=== PATIENT | male | born 1955 | race African-American/Black ===

== ENCOUNTER 2025-07-18 08:23 | Inpatient (IN) | payer OTHER ==
[2025-07-18] MEDS ORDERED: Iopamidol-370 76% 500 ML MDV (1 ML CHARGE) ONE (08:45)
[2025-07-18 08:47] LABS: #Basophils 0.03 10x3/uL (0.0-0.2); #Eosinophils 0.20 10x3/uL (0.0-0.7); #Monocytes 0.43 10x3/uL (0.11-0.59); #Neutrophils 2.78 10x3/uL (1.40-6.50); %Basophils 0.6 % (0.0-1.0); %Eosinophils 3.8 % (0.0-10.0); %Lymphocytes 35.3 % (21.0-51.0); %Monocytes 8.1 % (0.0-10.0); %Neutrophils 52.0 % (42.0-75.0); Hematocrit 37.2 % (42.0-52.0); Hemoglobin 11.8 g/dL (14.0-18.0); Mean Corpuscular Hemoglobin 31.5 pg (27.0-31.0); Mean Corpuscular Volume 99.2 fL (78.0-98.0); Platelet Count 256 10x3/uL (130-400); Red Blood Cell (RBC) Count 3.75 mill/uL (4.70-6.10); White Blood Cell (WBC) Count 5.33 10x3/uL (4.8-10.8)
[2025-07-18 09:00] LABS: ALT (SGPT) 16 U/L (Less than 45); AST (SGOT) 19 U/L (11-34); Albumin 3.6 g/dL (3.1-4.5); Alkaline Phosphatase 117 U/L (40-110); Anion Gap 14 mmol/L (10-20); BUN (Urea Nitrogen) 8 mg/dL (8.4-25.7); Bilirubin, Total 0.9 mg/dL (0.3-1.2); Calc. Creatinine Clearance 0 mL/min (70-130); Calcium 9.3 mg/dL (7.8-10.44); Carbon Dioxide 24 mmol/L (23-31); Chloride 109 mmol/L (98-107); Globulin 3.2 g/dL (2.4-3.5); Glucose 93 mg/dL (80-115); Potassium 4.0 mmol/L (3.5-5.1); Sodium 143 mmol/L (136-145)
[2025-07-18 09:07] LABS: INR-International Normal Ratio 1.2; PTT 28.2 sec (22.9-36.1); Prothrombin Time 15.1 sec (12.0-14.7)
[2025-07-18] MEDS ORDERED: Aspirin 325 MG TAB ONE (10:13)
[2025-07-18] MEDS ORDERED: Acetaminophen 325 MG TAB PO PRN (11:07)
[2025-07-18] MEDS ORDERED: hydrALAZINE 20 MG/ML VIAL SLOW IVP PRN (11:07)
[2025-07-18] MEDS ORDERED: Ondansetron PF 4 MG/2 ML Vial IVP PRN (11:07)
[2025-07-18 13:14] VITALS: BMI 18.8
[2025-07-18] MEDS: FLU (Fluad Triv) 25-26 (65UP)PF 45 MCG/0.5 ML Syringe IM ONE (16:08)
[2025-07-18] MEDS: PNEUMOC 20-VAL CONJ-DIP CRM/PF 0.5 ML SYRINGE IM ONE (16:09)
[2025-07-18] MEDS: Carvedilol 6.25 MG TAB PO SCH (16:10)
[2025-07-18] MEDS: Famotidine 20 MG TAB PO SCH (20:37)
[2025-07-19 04:03] LABS: #Basophils 0.04 10x3/uL (0.0-0.2); #Eosinophils 0.18 10x3/uL (0.0-0.7); #Monocytes 0.52 10x3/uL (0.11-0.59); #Neutrophils 3.72 10x3/uL (1.40-6.50); %Basophils 0.6 % (0.0-1.0); %Eosinophils 2.8 % (0.0-10.0); %Lymphocytes 30.0 % (21.0-51.0); %Monocytes 8.1 % (0.0-10.0); %Neutrophils 57.7 % (42.0-75.0); Hematocrit 34.5 % (42.0-52.0); Hemoglobin 11.1 g/dL (14.0-18.0); Mean Corpuscular Hemoglobin 31.4 pg (27.0-31.0); Mean Corpuscular Volume 97.7 fL (78.0-98.0); Platelet Count 257 10x3/uL (130-400); Red Blood Cell (RBC) Count 3.53 mill/uL (4.70-6.10); White Blood Cell (WBC) Count 6.44 10x3/uL (4.8-10.8)
[2025-07-19 04:20] LABS: Anion Gap 12 mmol/L (10-20); BUN (Urea Nitrogen) 10 mg/dL (8.4-25.7); Calc. Creatinine Clearance 81 mL/min (70-130); Calcium 9.3 mg/dL (7.8-10.44); Carbon Dioxide 24 mmol/L (23-31); Cardiac Risk 2.3 (Less than 4.5); Chloride 106 mmol/L (98-107); Cholesterol 104 mg/dl (< 200 Desired); Glucose 89 mg/dL (80-115); HDL Cholesterol 45 mg/dL (>60 Neg Risk); LDL Cholesterol, Calculated 51 mg/dL; Potassium 4.0 mmol/L (3.5-5.1); Sodium 138 mmol/L (136-145); Triglycerides 42 mg/dL (Less than 150)
[2025-07-19] MEDS: Losartan 25 MG TAB PO SCH (10:15)
[2025-07-19] MEDS: NIFEdipine XL 60 MG ER.TAB PO SCH (10:15)
[2025-07-19] MEDS: Aspirin 81 mg Enteric Coated Tablet PO SCH (10:15)
[2025-07-20 04:10] LABS: #Basophils 0.03 10x3/uL (0.0-0.2); #Eosinophils 0.24 10x3/uL (0.0-0.7); #Monocytes 0.52 10x3/uL (0.11-0.59); #Neutrophils 2.46 10x3/uL (1.40-6.50); %Basophils 0.6 % (0.0-1.0); %Eosinophils 4.8 % (0.0-10.0); %Lymphocytes 33.9 % (21.0-51.0); %Monocytes 10.5 % (0.0-10.0); %Neutrophils 49.8 % (42.0-75.0); Hematocrit 37.0 % (42.0-52.0); Hemoglobin 11.6 g/dL (14.0-18.0); Mean Corpuscular Hemoglobin 30.9 pg (27.0-31.0); Mean Corpuscular Volume 98.7 fL (78.0-98.0); Platelet Count 268 10x3/uL (130-400); Red Blood Cell (RBC) Count 3.75 mill/uL (4.70-6.10); White Blood Cell (WBC) Count 4.95 10x3/uL (4.8-10.8)
[2025-07-20 04:19] LABS: Anion Gap 9 mmol/L (10-20); BUN (Urea Nitrogen) 12 mg/dL (8.4-25.7); Calc. Creatinine Clearance 74 mL/min (70-130); Calcium 9.2 mg/dL (7.8-10.44); Carbon Dioxide 28 mmol/L (23-31); Chloride 105 mmol/L (98-107); Glucose 94 mg/dL (80-115); Potassium 3.6 mmol/L (3.5-5.1); Sodium 138 mmol/L (136-145)
[2025-07-20 15:55] VITALS: BMI 18.8
[2025-07-21 04:32] LABS: #Basophils 0.04 10x3/uL (0.0-0.2); #Eosinophils 0.25 10x3/uL (0.0-0.7); #Monocytes 0.53 10x3/uL (0.11-0.59); #Neutrophils 2.52 10x3/uL (1.40-6.50); %Basophils 0.8 % (0.0-1.0); %Eosinophils 4.8 % (0.0-10.0); %Lymphocytes 35.2 % (21.0-51.0); %Monocytes 10.3 % (0.0-10.0); %Neutrophils 48.7 % (42.0-75.0); Hematocrit 36.9 % (42.0-52.0); Hemoglobin 11.8 g/dL (14.0-18.0); Mean Corpuscular Hemoglobin 31.1 pg (27.0-31.0); Mean Corpuscular Volume 97.4 fL (78.0-98.0); Platelet Count 262 10x3/uL (130-400); Red Blood Cell (RBC) Count 3.79 mill/uL (4.70-6.10); White Blood Cell (WBC) Count 5.17 10x3/uL (4.8-10.8)
[2025-07-21 04:45] LABS: Anion Gap 10 mmol/L (10-20); BUN (Urea Nitrogen) 12 mg/dL (8.4-25.7); Calc. Creatinine Clearance 85 mL/min (70-130); Calcium 9.2 mg/dL (7.8-10.44); Carbon Dioxide 27 mmol/L (23-31); Chloride 109 mmol/L (98-107); Glucose 85 mg/dL (80-115); Magnesium 2.0 mg/dL (1.6-2.6); Potassium 4.2 mmol/L (3.5-5.1); Sodium 142 mmol/L (136-145)
[2025-07-22 06:53] LABS: #Basophils 0.04 10x3/uL (0.0-0.2); #Eosinophils 0.29 10x3/uL (0.0-0.7); #Monocytes 0.57 10x3/uL (0.11-0.59); #Neutrophils 2.87 10x3/uL (1.40-6.50); %Basophils 0.7 % (0.0-1.0); %Eosinophils 5.1 % (0.0-10.0); %Lymphocytes 33.9 % (21.0-51.0); %Monocytes 10.0 % (0.0-10.0); %Neutrophils 50.1 % (42.0-75.0); Hematocrit 38.1 % (42.0-52.0); Hemoglobin 12.4 g/dL (14.0-18.0); Mean Corpuscular Hemoglobin 31.5 pg (27.0-31.0); Mean Corpuscular Volume 96.7 fL (78.0-98.0); Platelet Count 283 10x3/uL (130-400); Red Blood Cell (RBC) Count 3.94 mill/uL (4.70-6.10); White Blood Cell (WBC) Count 5.72 10x3/uL (4.8-10.8)
[2025-07-22 07:26] LABS: Anion Gap 10 mmol/L (10-20); BUN (Urea Nitrogen) 12 mg/dL (8.4-25.7); Calc. Creatinine Clearance 100 mL/min (70-130); Calcium 9.3 mg/dL (7.8-10.44); Carbon Dioxide 27 mmol/L (23-31); Chloride 108 mmol/L (98-107); Glucose 80 mg/dL (80-115); Potassium 3.9 mmol/L (3.5-5.1); Sodium 141 mmol/L (136-145)
[2025-07-22 16:52] VITALS: BP 130/76; TEMP 97.9
== END 2025-07-22 17:52 | DRG 69 ==
LOC: ERS 08:23 → PCU 11:47
PROVIDERS: ADMIT Family Medicine; ATTEND Internal Medicine
PROC: 3E0234Z Introduction of Serum, Toxoid and Vaccine into Muscle, Percutaneous Approach (ICD-10-PCS; 2025-07-18)
PROC: 4A00X4Z Measurement of Central Nervous Electrical Activity, External Approach (ICD-10-PCS; principal; 2025-07-19)
DX: G45.9 Transient cerebral ischemic attack, unspecified (principal); G81.91 Hemiplegia, unspecified affecting right dominant side; R47.01 Aphasia; R29.810 Facial weakness; R29.711 NIHSS score 11; I25.10 Atherosclerotic heart disease of native coronary artery without angina pectoris; I10 Essential (primary) hypertension; Z79.899 Other long term (current) drug therapy; Z23 Encounter for immunization; Z88.8 Allergy status to other drugs, medicaments and biological substances; Z82.49 Family history of ischemic heart disease and other diseases of the circulatory system
CPT/HCPCS: 36415; 36416; 70450; 70496; 70498; 70551; 80048; 80053; 80061; 83735; 84484; 85025; 85610; 85730; 90471; 90653; 90677; 93005; 95700; 95711; 95957; G0009; Q9967

== ENCOUNTER 2025-08-13 09:09 | Inpatient (IN) | payer OTHER ==
[2025-08-13 09:39] LABS: #Basophils 0.03 10x3/uL (0.0-0.2); #Eosinophils 0.25 10x3/uL (0.0-0.7); #Monocytes 0.47 10x3/uL (0.11-0.59); #Neutrophils 3.47 10x3/uL (1.40-6.50); %Basophils 0.5 % (0.0-1.0); %Eosinophils 4.1 % (0.0-10.0); %Lymphocytes 30.9 % (21.0-51.0); %Monocytes 7.7 % (0.0-10.0); %Neutrophils 56.5 % (42.0-75.0); Hematocrit 41.6 % (42.0-52.0); Hemoglobin 12.9 g/dL (14.0-18.0); Mean Corpuscular Hemoglobin 31.1 pg (27.0-31.0); Mean Corpuscular Volume 100.2 fL (78.0-98.0); Platelet Count 302 10x3/uL (130-400); Red Blood Cell (RBC) Count 4.15 mill/uL (4.70-6.10); White Blood Cell (WBC) Count 6.14 10x3/uL (4.8-10.8)
[2025-08-13 09:51] LABS: ALT (SGPT) 20 U/L (Less than 45); AST (SGOT) 21 U/L (11-34); Albumin 4.1 g/dL (3.1-4.5); Alkaline Phosphatase 114 U/L (40-110); Anion Gap 17 mmol/L (10-20); BUN (Urea Nitrogen) 11 mg/dL (8.4-25.7); Bilirubin, Total 0.9 mg/dL (0.3-1.2); Calc. Creatinine Clearance 0 mL/min (70-130); Calcium 10.2 mg/dL (7.8-10.44); Carbon Dioxide 27 mmol/L (23-31); Chloride 105 mmol/L (98-107); Globulin 3.8 g/dL (2.4-3.5); Glucose 104 mg/dL (83-110); Potassium 4.5 mmol/L (3.5-5.1); Sodium 144 mmol/L (136-145)
[2025-08-13 11:37] LABS: Bacteria/HPF None Seen HPF (None Seen); CAUTI Indications for Culture Acute Hematuria; Glucose, Urine (Dipstick) Normal (Negative); Leukocyte Negative Leu/uL (Negative); Protein, Urine (Dipstick) 10 mg/dL (Neg-Trace); RBC/HPF 0-3 HPF (0-3); Specific Gravity, Urine 1.038 (1.002-1.036); WBC/HPF 0-3 HPF (0-3)
[2025-08-13 11:40] LABS: Urine Culture Reflex No No
[2025-08-13] MEDS ORDERED: Senokot S 8.6-50 MG TAB PO PRN (12:34)
[2025-08-13] MEDS ORDERED: Ondansetron PF 4 MG/2 ML Vial IVP PRN (12:34)
[2025-08-13] MEDS ORDERED: hydrALAZINE 20 MG/ML VIAL SLOW IVP PRN (12:34)
[2025-08-13 12:52] VITALS: BMI 21.7
[2025-08-13] MEDS ORDERED: Iopamidol-370 76% 500 ML MDV (1 ML CHARGE) ONE (13:43)
[2025-08-13] MEDS: Aspirin 81 mg Enteric Coated Tablet PO SCH (16:31)
[2025-08-13] MEDS: Famotidine 20 MG TAB PO SCH (19:59)
[2025-08-14 05:46] LABS: Anion Gap 12 mmol/L (10-20); BUN (Urea Nitrogen) 12 mg/dL (8.4-25.7); Calc. Creatinine Clearance 99 mL/min (70-130); Calcium 9.9 mg/dL (7.8-10.44); Carbon Dioxide 24 mmol/L (23-31); Cardiac Risk 2.5 (Less than 4.5); Chloride 106 mmol/L (98-107); Cholesterol 130 mg/dl (< 200 Desired); Glucose 88 mg/dL (83-110); HDL Cholesterol 51 mg/dL (>60 Neg Risk); LDL Cholesterol, Calculated 66 mg/dL; Potassium 4.3 mmol/L (3.5-5.1); Sodium 138 mmol/L (136-145); Triglycerides 64 mg/dL (Less than 150)
[2025-08-14] MEDS: Aspirin 81 mg Enteric Coated Tablet PO SCH (09:45)
[2025-08-15] MEDS: PNEUMOC 20-VAL CONJ-DIP CRM/PF 0.5 ML SYRINGE IM ONE (08:43)
[2025-08-15 14:38] VITALS: BMI 21.7
[2025-08-15] MEDS: FLU (Fluad Triv) 25-26 (65UP)PF 45 MCG/0.5 ML Syringe IM ONE (15:18)
[2025-08-16 15:59] VITALS: BP 116/68; TEMP 98.1
== END 2025-08-16 18:41 | DRG 69 ==
LOC: ERS 09:09 → ERHOLD 11:56 → 2SE 15:33
PROVIDERS: ADMIT Internal Medicine; ATTEND Internal Medicine
PROC: XX20X89 Monitoring of Brain Electrical Activity, Computer-aided Detection and Notification, New Technology Group 9 (ICD-10-PCS; principal; 2025-08-13)
PROC: 3E02340 Introduction of Influenza Vaccine into Muscle, Percutaneous Approach (ICD-10-PCS; 2025-08-15)
DX: G45.9 Transient cerebral ischemic attack, unspecified (principal); I69.951 Hemiplegia and hemiparesis following unspecified cerebrovascular disease affecting right dominant side; I10 Essential (primary) hypertension; E78.5 Hyperlipidemia, unspecified; I25.10 Atherosclerotic heart disease of native coronary artery without angina pectoris; Z66 Do not resuscitate; Z88.8 Allergy status to other drugs, medicaments and biological substances; Z23 Encounter for immunization
CPT/HCPCS: 36415; 70450; 70496; 70498; 80048; 80053; 80061; 81001; 83605; 84146; 85025; 93005; Q9967

== ENCOUNTER 2025-09-20 11:37 | Inpatient (IN) | payer OTHER ==
[~2025-09-20 11:37] MED LIST: Iopamidol-370 76% 500 ML MDV (1 ML CHARGE) ONE
[2025-09-20 12:13] LABS: #Basophils 0.04 10x3/uL (0.0-0.2); #Eosinophils 0.08 10x3/uL (0.0-0.7); #Monocytes 0.44 10x3/uL (0.11-0.59); #Neutrophils 4.20 10x3/uL (1.40-6.50); %Basophils 0.6 % (0.0-1.0); %Eosinophils 1.3 % (0.0-10.0); %Lymphocytes 24.7 % (21.0-51.0); %Monocytes 6.9 % (0.0-10.0); %Neutrophils 66.2 % (42.0-75.0); Hematocrit 36.3 % (42.0-52.0); Hemoglobin 11.5 g/dL (14.0-18.0); Mean Corpuscular Hemoglobin 31.2 pg (27.0-31.0); Mean Corpuscular Volume 98.4 fL (78.0-98.0); Platelet Count 284 10x3/uL (130-400); Red Blood Cell (RBC) Count 3.69 mill/uL (4.70-6.10); White Blood Cell (WBC) Count 6.35 10x3/uL (4.8-10.8)
[2025-09-20 12:27] LABS: INR-International Normal Ratio 1.1; PTT 24.6 sec (22.9-36.1); Prothrombin Time 14.4 sec (12.0-14.7)
[2025-09-20 13:12] LABS: ALT (SGPT) 11 U/L (Less than 45); AST (SGOT) 31 U/L (11-34); Albumin 3.4 g/dL (3.1-4.5); Alkaline Phosphatase 80 U/L (40-110); Anion Gap 11 mmol/L (10-20); BUN (Urea Nitrogen) 12 mg/dL (8.4-25.7); Bilirubin, Total 0.6 mg/dL (0.3-1.2); Calc. Creatinine Clearance 0 mL/min (70-130); Calcium 8.8 mg/dL (7.8-10.44); Carbon Dioxide 23 mmol/L (23-31); Chloride 112 mmol/L (98-107); Globulin 3.4 g/dL (2.4-3.5); Glucose 109 mg/dL (83-110); Potassium 4.2 mmol/L (3.5-5.1); Sodium 143 mmol/L (136-145)
[2025-09-20 14:53] LABS: Bacteria/HPF None Seen HPF (None Seen); CAUTI Indications for Culture Fever or rigors; Glucose, Urine (Dipstick) Normal (Negative); Leukocyte Negative Leu/uL (Negative); Protein, Urine (Dipstick) 10 mg/dL (Neg-Trace); RBC/HPF 0-3 HPF (0-3); WBC/HPF None Seen HPF (0-3)
[2025-09-20 14:54] LABS: Specific Gravity, Urine Greater than 1.050 (1.002-1.036)
[2025-09-20 14:55] LABS: Urine Culture Reflex No No
[2025-09-20] MEDS ORDERED: Ondansetron PF 4 MG/2 ML Vial IVP PRN (16:36)
[2025-09-20] MEDS ORDERED: Melatonin 3 MG TAB PO PRN (16:36)
[2025-09-20] MEDS ORDERED: Calcium Carbonate 500 MG ChewTAB PO PRN (16:36)
[2025-09-20] MEDS ORDERED: Senokot S 8.6-50 MG TAB PO PRN (16:36)
[2025-09-20] MEDS ORDERED: hydrALAZINE 20 MG/ML VIAL SLOW IVP PRN (16:36)
[2025-09-20] MEDS: Famotidine 20 MG TAB PO SCH (20:46)
[2025-09-21 03:52] LABS: #Basophils 0.03 10x3/uL (0.0-0.2); #Eosinophils 0.26 10x3/uL (0.0-0.7); #Monocytes 0.49 10x3/uL (0.11-0.59); #Neutrophils 3.28 10x3/uL (1.40-6.50); %Basophils 0.5 % (0.0-1.0); %Eosinophils 4.3 % (0.0-10.0); %Lymphocytes 32.5 % (21.0-51.0); %Monocytes 8.1 % (0.0-10.0); %Neutrophils 54.3 % (42.0-75.0); Hematocrit 34.3 % (42.0-52.0); Hemoglobin 11.2 g/dL (14.0-18.0); Mean Corpuscular Hemoglobin 31.4 pg (27.0-31.0); Mean Corpuscular Volume 96.1 fL (78.0-98.0); Platelet Count 282 10x3/uL (130-400); Red Blood Cell (RBC) Count 3.57 mill/uL (4.70-6.10); White Blood Cell (WBC) Count 6.04 10x3/uL (4.8-10.8)
[2025-09-21 04:10] LABS: Anion Gap 11 mmol/L (10-20); BUN (Urea Nitrogen) 10 mg/dL (8.4-25.7); Calc. Creatinine Clearance 96 mL/min (70-130); Calcium 9.3 mg/dL (7.8-10.44); Carbon Dioxide 26 mmol/L (23-31); Chloride 111 mmol/L (98-107); Glucose 87 mg/dL (83-110); Potassium 4.1 mmol/L (3.5-5.1); Sodium 144 mmol/L (136-145)
[2025-09-21] MEDS: Aspirin 81 mg Enteric Coated Tablet PO SCH (08:56)
[2025-09-21] MEDS: levETIRAcetam 500 MG (5 mL) VIAL SLOW IVP SCH (11:07)
[2025-09-22 04:45] LABS: #Basophils 0.05 10x3/uL (0.0-0.2); #Eosinophils 0.23 10x3/uL (0.0-0.7); #Monocytes 0.33 10x3/uL (0.11-0.59); #Neutrophils 2.58 10x3/uL (1.40-6.50); %Basophils 1.1 % (0.0-1.0); %Eosinophils 5.0 % (0.0-10.0); %Lymphocytes 30.3 % (21.0-51.0); %Monocytes 7.2 % (0.0-10.0); %Neutrophils 56.2 % (42.0-75.0); Hematocrit 34.8 % (42.0-52.0); Hemoglobin 11.7 g/dL (14.0-18.0); Mean Corpuscular Hemoglobin 32.1 pg (27.0-31.0); Mean Corpuscular Volume 95.6 fL (78.0-98.0); Platelet Count 289 10x3/uL (130-400); Red Blood Cell (RBC) Count 3.64 mill/uL (4.70-6.10); White Blood Cell (WBC) Count 4.59 10x3/uL (4.8-10.8)
[2025-09-22 05:09] LABS: Anion Gap 12 mmol/L (10-20); BUN (Urea Nitrogen) 12 mg/dL (8.4-25.7); Calc. Creatinine Clearance 99 mL/min (70-130); Calcium 9.2 mg/dL (7.8-10.44); Carbon Dioxide 25 mmol/L (23-31); Chloride 108 mmol/L (98-107); Glucose 89 mg/dL (83-110); Potassium 4.2 mmol/L (3.5-5.1); Sodium 141 mmol/L (136-145)
[2025-09-23 05:37] LABS: #Basophils 0.04 10x3/uL (0.0-0.2); #Eosinophils 0.28 10x3/uL (0.0-0.7); #Monocytes 0.42 10x3/uL (0.11-0.59); #Neutrophils 2.54 10x3/uL (1.40-6.50); %Basophils 0.8 % (0.0-1.0); %Eosinophils 5.9 % (0.0-10.0); %Lymphocytes 31.0 % (21.0-51.0); %Monocytes 8.8 % (0.0-10.0); %Neutrophils 53.3 % (42.0-75.0); Hematocrit 36.5 % (42.0-52.0); Hemoglobin 11.7 g/dL (14.0-18.0); Mean Corpuscular Hemoglobin 31.4 pg (27.0-31.0); Mean Corpuscular Volume 97.9 fL (78.0-98.0); Platelet Count 280 10x3/uL (130-400); Red Blood Cell (RBC) Count 3.73 mill/uL (4.70-6.10); White Blood Cell (WBC) Count 4.77 10x3/uL (4.8-10.8)
[2025-09-23 05:49] LABS: Anion Gap 11 mmol/L (10-20); BUN (Urea Nitrogen) 11 mg/dL (8.4-25.7); Calc. Creatinine Clearance 85 mL/min (70-130); Calcium 9.3 mg/dL (7.8-10.44); Carbon Dioxide 26 mmol/L (23-31); Glucose 91 mg/dL (83-110); Potassium 4.8 mmol/L (3.5-5.1); Sodium 140 mmol/L (136-145)
[2025-09-23 05:51] LABS: Chloride 108 mmol/L (98-107)
[2025-09-24 04:34] LABS: #Basophils 0.03 10x3/uL (0.0-0.2); #Eosinophils 0.29 10x3/uL (0.0-0.7); #Monocytes 0.45 10x3/uL (0.11-0.59); #Neutrophils 3.03 10x3/uL (1.40-6.50); %Basophils 0.6 % (0.0-1.0); %Eosinophils 5.6 % (0.0-10.0); %Lymphocytes 26.1 % (21.0-51.0); %Monocytes 8.7 % (0.0-10.0); %Neutrophils 58.6 % (42.0-75.0); Hematocrit 37.6 % (42.0-52.0); Hemoglobin 12.3 g/dL (14.0-18.0); Mean Corpuscular Hemoglobin 31.4 pg (27.0-31.0); Mean Corpuscular Volume 95.9 fL (78.0-98.0); Platelet Count 292 10x3/uL (130-400); Red Blood Cell (RBC) Count 3.92 mill/uL (4.70-6.10); White Blood Cell (WBC) Count 5.17 10x3/uL (4.8-10.8)
[2025-09-24 04:45] LABS: Anion Gap 12 mmol/L (10-20); BUN (Urea Nitrogen) 9 mg/dL (8.4-25.7); Calc. Creatinine Clearance 106 mL/min (70-130); Calcium 9.7 mg/dL (7.8-10.44); Carbon Dioxide 26 mmol/L (23-31); Chloride 107 mmol/L (98-107); Glucose 86 mg/dL (83-110); Potassium 4.3 mmol/L (3.5-5.1); Sodium 141 mmol/L (136-145)
[2025-09-24 07:45] VITALS: BMI 19.9
[2025-09-27 16:00] VITALS: BMI 19.9
[2025-09-28 12:18] VITALS: TEMP 97.9
[2025-09-28 15:57] VITALS: BP 121/75
== END 2025-09-28 16:55 | DRG 101 ==
LOC: ERS 11:37 → ERHOLD 15:24 → 2SE 18:03 → OBSVTOIN 09-21 15:23 → 2SE 09-28 00:55
PROVIDERS: ADMIT Family Medicine; ATTEND Family Medicine
PROC: XX20X89 Monitoring of Brain Electrical Activity, Computer-aided Detection and Notification, New Technology Group 9 (ICD-10-PCS; principal; 2025-09-21)
DX: R56.9 Unspecified convulsions (principal); I69.051 Hemiplegia and hemiparesis following nontraumatic subarachnoid hemorrhage affecting right dominant side; I10 Essential (primary) hypertension; R13.10 Dysphagia, unspecified; I25.10 Atherosclerotic heart disease of native coronary artery without angina pectoris; E78.5 Hyperlipidemia, unspecified; Z66 Do not resuscitate; N40.0 Benign prostatic hyperplasia without lower urinary tract symptoms; Z79.899 Other long term (current) drug therapy; Z79.82 Long term (current) use of aspirin; Z79.02 Long term (current) use of antithrombotics/antiplatelets; Z88.8 Allergy status to other drugs, medicaments and biological substances
CPT/HCPCS: 36415; 36416; 70450; 70496; 70498; 70551; 71045; 80048; 80053; 81001; 83605; 84146; 84484; 85025; 85610; 85730; 93005; 95700; 95711; 95819; 95957; 96360; G0378; J1953; Q9967